=== PATIENT | male | born 1945 | race Caucasian/White ===

== ENCOUNTER 2022-02-04 14:39 | Emergency (ER) | payer MEDICARE, OTHER, SELFPAY ==
[2022-02-04 14:41] VITALS: PULSE 90; RESP 20; TEMP 36.6; O2SAT 95
--- NOTE | 2022-02-04 14:45 | DI.RAD.S_ITS ---
PROCEDURE: XR WRIST RT MIN 3V INDICATIONS: fall, deformity TECHNIQUE: 3 views of the wrist were acquired. COMPARISON: None. FINDINGS: Bones: Acute slightly comminuted and impacted distal radial fracture is seen with dorsal displacement and angulation at fracture site. 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 No other fracture or dislocation No suspicious bony lesions. Scaphoid view: Scaphoid is grossly intact. Soft tissues: No suspicious soft tissue calcifications. IMPRESSION: Acute slightly comminuted, displaced and impacted distal radial fracture as above. Dictated by: Héctor Aldana M.D. on 02/04/2022 at 15:06 Approved by: Héctor Aldana M.D. on 02/04/2022 at 15:07
--- NOTE | 2022-02-04 17:41 | ED_ITS ---
HPI - General Adult General Chief complaint: Extremity Injury, Upper Stated complaint: Possible broke wrist- rt Time Seen by Provider: 02/04/22 15:44 Source: patient Mode of arrival: Ambulatory History of Present Illness HPI narrative: 77-year-old gentleman with minimal medical history presents after falling on an outstretched hand and injuring his right wrist. He was working on a deck is partially finished step through when he should have stepped over reached out to grab himself to correct an injured the wrist. He is neurovascularly intact. He complains of no other injuries. Related Data Previous Rx's Medication Instructions Recorded oxycodone-acetaminophen 5 mg-325 1 tab PO Q6H PRN pain #10 tabs 02/04/22 mg tablet Allergies Allergy/AdvReac Type Severity Reaction Status Date / Time No Known Drug Allergies Allergy Verified 02/04/22 14:44 Review of Systems Review of Systems Narrative: Pertinent positive and negative findings as per HPI Remainder of review of systems is otherwise unremarkable for Constitutional: Fevers, chills, weakness ENT: No sore throat, neck pain, ear pain CV: Chest pain, palpitations, Respiratory: Cough, wheeze, dyspnea GI: Nausea, vomiting, diarrhea, : Dysuria, hematuria, Exam Initial Vital Signs Initial Vital Signs: Vital Signs Temperature 97.8 F 02/04/22 14:41 Pulse Rate 90 02/04/22 14:41 Respiratory Rate 20 02/04/22 14:41 Pulse Oximetry 95 02/04/22 14:41 Oxygen Delivery Method 02/04/22 14:41 General: Alert appropriate in no acute distress Respiratory: Able to speak in full sentences, no obvious respiratory distress Skin: No obvious rashes, warm and dry Neurologic: Grossly intact no obvious asymmetries or abnormalities Psych: appropriate insight and affect, cooperative Ext: right wrist with obvious deformity. Neurovascularly intact. No significant abrasions or contusions. Procedures Orthopedic Fracture Reduction right wrist reduction: Time of procedure: 17:56 Side: right Fracture Reduction Location: radius Analgesia: hematoma block Technique: direct manipulation Post Reduction X-rays Demonstrate: acceptable reduction Post-reduction neuro exam: intact Post-reduction vascular exam: intact Splint Applied: Yes Patient Tolerated Procedure: Well Orthopedic Splinting/Casting right wrist: Time of procedure: 17:57 Upper Extremity Injury Location: wrist Upper Extremity Immobilizer: sling/shoulder immobilizer and volar splint Post splinting neuro exam: intact Post splinting vascular exam: intact Placed by: Nursing Course Orders Ordered: ED Orders 02/04/22 14:45 XR wrist RT min 3V Stat 02/04/22 17:55 XR wrist RT 2V Stat Discontinued Medications Ibuprofen (Ibuprofen 400 Mg Tablet) 400 mg PO NOW ONE Stop: 02/04/22 17:40 Last Admin: 02/04/22 17:45 Dose: 400 mg Lidocaine/Sodium Bicarbonate (Lido 1%/Sod Bicarb 8.4% (10ml) 10 Ml Syringe) 10 ml INJ NOW ONE Stop: 02/04/22 15:53 Oxycodone/Acetaminophen (Oxycodone/Acetaminophen 5/325 Tablet) 1 tab PO NOW ONE Stop: 02/04/22 17:40 Last Admin: 02/04/22 17:47 Dose: 1 tab Vital Signs Vital signs: Vital Signs - 8 hr 02/04/22 14:41 Temperature 97.8 F Pulse Rate 90 Respiratory Rate 20 Pulse Oximetry 95 Oxygen Delivery Method Room Air Medical Decision Making Imaging Data xr wrist: Radiologist's Impression: FINDINGS:? ? Bones:? Acute slightly comminuted and impacted distal radial fracture is seen with dorsal displacement and angulation at fracture site.? 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 No other fracture or dislocation? No suspicious bony lesions.? ? Scaphoid view:? Scaphoid is grossly intact. ? Soft tissues:? No suspicious soft tissue calcifications.? ? IMPRESSION:? Acute slightly comminuted, displaced and impacted distal radial fracture as above. ? ? Dictated by: Héctor Aldana M.D. on 02/04/2022 at 15:06? ?? [facility] Narrative Medical decision making narrative: 77-year-old gentleman with fall on an outstretched wrist with the distal radius fracture that does not appear to be intra-articular. It is angulated and comminuted. Hematoma block is done and it is partially reduced but will need more intervention. He has an orthopedic surgeon in [facility] that he is worked with previously. Would prefer to follow-up there. Be given a radiology disc. He is placed in a splint. Much more comfortable. Pain instructions are given. He is safe for home discharge Discharge Plan Departure Patient Disposition: Home Clinical Impression: Fracture of wrist Qualifiers: Encounter type: initial encounter Fracture type: closed Laterality: right Qualified Code(s): S62.101A - Fracture of unspecified carpal bone, right wrist, initial encounter for closed fracture Instructions: DI for Wrist Fracture Activity Restrictions/Additional Instructions: Thank you for coming in today Your broken wrist was partially reduced but is still likely going to need more adjustment by the orthopedic surgeon. Please schedule an appointment within the next few days for further evaluation and definitive treatment of your wrist/distal radius fracture. Please keep the splint in place and if the sling is helpful continue to use that. Using 400 mg of ibuprofen (2 [id number] pills) and 1 Tylenol every 6 hours can be very helpful in controlling pain. For severe pain using to ibuprofen and 1 Percocet can also be helpful. If you do choose to use Percocet please make sure that you are taking a stool softener as narcotics can cause constipation. I hope you heal quickly Prescriptions: New oxycodone-acetaminophen 5-325 mg tablet 1 tab PO Q6H PRN (Reason: pain) Qty: 10 0RF
[2022-02-04] MEDS: IBUPROFEN 400 MG TABLET PO (17:45)
[2022-02-04] MEDS: LIDOCAINE 2% INJ MDV 20 ML (17:47)
[2022-02-04] MEDS: OXYCODONE/ACETAMINOPHEN 5/325 TABLET 1 TAB PO (17:47)
--- NOTE | 2022-02-04 17:55 | DI.RAD.S_ITS ---
PROCEDURE: XR WRIST RT 2V INDICATIONS: post reduction TECHNIQUE: 2 views of the wrist were acquired. COMPARISON: [facility], CR, XR WRIST RT MIN 3V, 02/04/2022, 14:50. FINDINGS: Bones: And transverse fracture through the distal radius with dorsal angulation of distal fracture fragment is similar to the prior exam. Overlying fiberglass splint. Soft tissues: No suspicious soft tissue calcifications. IMPRESSION: Dorsally angulated comminuted distal radial fracture in splint Approved by: Jose Ortega M.D. on 02/04/2022 at 17:57
[2022-02-04 18:59] VITALS: BP 126/66; PULSE 64; RESP 18; O2SAT 97
== END 2022-02-04 19:02 | disposition home or self-care (01) ==
PROVIDERS: Emergency Provider Emergency Medicine
DX: S62.101A Fracture of unspecified carpal bone, right wrist, initial encounter for closed fracture (principal); W19.XXXA Unspecified fall, initial encounter
CPT/HCPCS: 25605; 29125; 73100; 73110; 99284